=== PATIENT | male | born 1965 | race Caucasian/White ===

== ENCOUNTER 2018-09-23 03:23 | Emergency (ER) | END 2018-09-23 06:29 | disposition home or self-care (01) ==

== ENCOUNTER 2018-09-23 20:30 | Emergency (ER) | END 2018-09-23 23:25 | disposition home or self-care (01) ==

== ENCOUNTER 2019-04-10 19:39 | Emergency (ER) | payer MEDICAID ==
[~2019-04-10] VITALS: Ht 162.6 cm; Wt 73.0 kg
[~2019-04-10 19:39] MED LIST: FAMO-96 PO; IBUP-1542 PO; LORA-441 PO; ZOF8 PO
[2019-04-10 19:51] VITALS: BP 147/68; PULSE 85; RESP 18; Ht 162.6 cm; Wt 73.0 kg
--- NOTE | 2019-04-16 21:35 | ERD ---
ER Documentation Chief Complaint Chief Complaint seen 04/10/19 generalize body rash/itch x 8 days HPI 53-year-old male history for hypertension hyperlipidemia presents for rash x8 days. Rash is generalized. He states that he noticed a rash after taking medication. He takes losartan and statin for hyperlipidemia. He has been taking these medications for years. Denies any fevers or chills. Denies chest pain or shortness of breath. No abdominal pain, nausea, vomiting. No other modifying factors noted, no treatments tried at home. ROS All systems reviewed and are negative except as per history of present illness. Medications Home Meds Active Scripts Loratadine* (Claritin*) 10 Mg Capsule, 10 MG PO DAILY PRN for ITCHING, #30 CAP Prov:LUPILLO LAU DO 04/10/19 Diphenhydramine Hcl (Benadryl) 25 Mg Cap, 25 MG PO Q6H PRN for ITCHING, #30 CAP Prov:LUPILLO LAU DO 04/10/19 Famotidine* (Famotidine*) 40 Mg Tablet, 40 MG PO HS, #30 TAB Prov:RADHA WINKLER PA-C 04/24/16 Allergies Allergies: Coded Allergies: Penicillins (Verified Allergy, Unknown, 07/12/18) PMhx/Soc Hypertension, hyperlipidemia History of Surgery: No Anesthesia Reaction: No Hx Neurological Disorder: No Hx Respiratory Disorders: No Hx Cardiac Disorders: No Hx Psychiatric Problems: No Hx Miscellaneous Medical Probl: No Hx Alcohol Use: Yes (REGULARLY) Hx Substance Use: No (denies) Hx Tobacco Use: No FmHx Family History: No coronary disease Physical Exam Vitals Temperature 98.5, pulse 85, respiration 18, blood pressure 147/68, O2 saturation 98% on room air Physical Exam Const: No acute distress Head: Atraumatic Eyes: Normal Conjunctiva ENT: Normal External Ears, Nose and Mouth. Neck: Full range of motion. No meningismus. Resp: Clear to auscultation bilaterally Cardio: Regular rate and rhythm, no murmurs Abd: Soft, non tender, non distended. Normal bowel sounds Skin: Diffuse macular papular rash noted Back: No midline or flank tenderness Ext: No cyanosis, or edema Neur: Awake and alert Psych: Normal Mood and Affect Procedures/MDM Medical Decision Making: Differential diagnosis includes but not limited to allergic reaction, dermatitis, cellulitis, viral syndrome, fungal infection, erythrasma Patient appeared well on physical exam. No acute distress, speaking in full sentences, there is no tongue swelling Physical examination consistent with dermatitis Low suspicion for deep space infection, Babak Gibson symdrome, toxic epiderma necrolysis Prescription(s): Patient given prescription for supportive medication(s). Patient advised to follow up with PCP in 1-2 days. Patient advised to return to ED for new or worsening symptoms. Patient stable on discharge from the ED. Disclaimer: Inadvertent spelling and grammatical errors are likely due to EHR /dictation software use and do not reflect on the overall quality of patient care. Also, please note that the electronic time recorded on this note does not necessarily reflect the actual time of the patient encounter. Departure Diagnosis: Primary Impression: Rash Condition: Fair Patient Instructions: Self-Care for Skin Rashes Referrals: COUNTS INCLUDE 234 BEDS AT THE [facility] YOU HAVE RECEIVED A MEDICAL SCREENING EXAM AND THE RESULTS INDICATE THAT YOU DO NOT HAVE A CONDITION THAT REQUIRES URGENT TREATMENT IN THE EMERGENCY DEPARTMENT. FURTHER EVALUATION AND TREATMENT OF YOUR CONDITION CAN WAIT UNTIL YOU ARE SEEN IN YOUR DOCTORS OFFICE WITHIN THE NEXT 1-2 DAYS. IT IS YOUR RESPONSIBILITY TO MAKE AN APPOINTMENT FOR FOLOW-UP CARE. IF YOU HAVE A PRIMARY DOCTOR --you should call your primary doctor and schedule an appointment IF YOU DO NOT HAVE A PRIMARY DOCTOR YOU CAN CALL OUR PHYSICIAN REFERRAL HOTLINE AT IF YOU CAN NOT AFFORD TO SEE A PHYSICIAN YOU CAN CHOSE FROM THE FOLLOWING FORMERLY [facility] [address] [facility]. [facility] [address] [facility] [address] [facility] [address] [facility]. [facility] [address] [facility]. [facility]. [address] Additional Instructions: Llame al doctor MAANA y kerry vanessa CALI PARA DENTRO DE 1-2 ADEN.Dgale a la secretaria que nosotros le instruimos hacer esta cali.Avise o llame si guerrero condicin se empeora antes de la cali. Regresa aqui si peor o no mejor. LUPILLO LAU DO Apr 16, 2019 21:35
== END 2019-04-10 20:29 | disposition home or self-care (01) ==
LOC: MERGE 19:39 → E/R 19:39
DX: R21 Rash and other nonspecific skin eruption (principal); I10 Essential (primary) hypertension
CPT/HCPCS: 93005

== ENCOUNTER 2019-04-18 18:55 | Emergency (ER) | payer MEDICAID ==
[~2019-04-18] VITALS: Ht 160 cm; Wt 72.7 kg
[2019-04-18 19:01] VITALS: RESP 19; Ht 160 cm; Wt 72.7 kg
--- NOTE | 2019-04-18 19:12 | EN ---
Date/Time of Note Date/Time of Note DATE: 04/18/19 TIME: 19:11 ER Progress Note MSE-itchy rash despite Benadryl and Claritin. May benefit from steroids or treatment IM. ED 2 appropriate. Previous visit here last week per patient although possibly under different account number. BENNY MYERS MD Apr 18, 2019 19:12
[2019-04-18] MEDS ORDERED: PRED20TA PO (19:59)
[2019-04-18] MEDS ORDERED: DIPHENHYDRAMINE 50 MG INJ IM ONE (20:00)
[2019-04-18] MEDS ORDERED: DEXAMETHASONE 10 MG/ML 1 ML INJ IM ONE (20:00)
--- NOTE | 2019-04-18 20:03 | ERD ---
ER Documentation Chief Complaint Chief Complaint RASH ON LEGS; POSS ALLERGY; ON/OFF [id number] NOT WORKING HPI 53-year-old male presents with an itchy rash on his legs and face and flexor s urfaces of his elbows for the last 2 weeks. He has been taking gemfibrozil and MALA receptor kenny starting 1 month prior. He is currently stopped his medications. He has been prescribed Claritin and Benadryl for itching with some relief but not complete. Denies shortness of breath, fevers, vomiting, abdominal pain, known allergies or inciting events. ROS All systems reviewed and are negative except as per history of present illness. Medications Home Meds Active Scripts Prednisone* (Prednisone*) 20 Mg Tab, 40 MG PO DAILY for 4 Days, TAB Start April Prov:BENNY MYERS MD 04/18/19 Lorazepam* (Ativan*) 0.5 Mg Tablet, 0.5 MG PO Q8H PRN for hiccoughs, #10 TAB Prov:CHEYANNE YANG PA-C 09/23/18 Ondansetron Hcl* (Zofran*) 8 Mg Tab, 8 MG PO Q6H PRN for NAUSEA AND OR VOMITING, #20 TAB Prov:ELVA PATRICK MD 09/23/18 Famotidine* (Pepcid*) 20 Mg Tablet, 20 MG PO BID for 14 Days, TAB Prov:ELVA PATRICK MD 09/23/18 Ibuprofen* (Motrin*) 600 Mg Tab, 600 MG PO Q6H PRN for PAIN AND OR ELEVATED TEMP, #30 Prov:DAVE JUNIOR NP 09/05/15 Allergies Allergies: Coded Allergies: Penicillins (Verified Allergy, Intermediate, RASH, MALAISE, 09/05/15) PMhx/Soc Medical and Surgical Hx: pt denies Surgical Hx History of Surgery: No Hx Neurological Disorder: No Hx Respiratory Disorders: No Hx Cardiac Disorders: Yes (HTN, HLD) Hx Psychiatric Problems: No Hx Miscellaneous Medical Probl: No Hx Alcohol Use: Yes (heavy) Hx Substance Use: No Hx Tobacco Use: Yes (3 CIGARS DAILY ) Smoking Status: Current every day smoker FmHx Family History: No diabetes, No coronary disease, No other Physical Exam Vitals Vital Signs Date Temp Pulse Resp B/P (MAP) Pulse Ox O2 O2 Flow FiO2 Time Delivery Rate 04/18/19 98.7 84 19 155/77 97 19:01 (103) Physical Exam Const: No acute distress Head: Atraumatic Eyes: Normal Conjunctiva ENT: Normal External Ears, Nose and Mouth. Irritation of the eyelids and cheeks and lips without induration, streaking, vesicles. Airway patent and tongue normal size. Neck: Full range of motion. No meningismus. Resp: Clear to auscultation bilaterally Cardio: Regular rate and rhythm, no murmurs Abd: Soft, non tender, non distended. Normal bowel sounds Skin: No petechiae or purpura. Scattered blanching erythematous macular papular rash primarily on the thighs and inner legs. No induration, streaking, vesicles. Back: No midline or flank tenderness Ext: No cyanosis, or edema Neur: Awake and alert Psych: Normal Mood and Affect Results 24 hrs Current Medications Medications Dose Sig/Ana Maria Start Time Status Last (Trade) Ordered Route PRN Stop Time Admin Dose Reason Admin 10 mg ONCE ONCE 04/18/19 Dexamethasone IM 20:00 (Decadron) 04/18/19 20:01 50 mg ONCE ONCE 04/18/19 Diphenhydrami IM 20:00 ne HCl 04/18/19 20:01 (Benadryl) Procedures/MDM Patient presents with an itchy rash on the face, extremities for last 2 weeks. Clinically it may have the appearance of a drug reaction or nonspecific eczema type rash. There is no signs of anaphylaxis, purpura, life-threatening rashes, cellulitis. He was given Decadron 10 mg IM as well as Benadryl 50 mg and will be treated with continuation of a short course of prednisone, Benadryl, primary care follow-up and return precautions. The patient was stable with no new complaints during the ER course. Clinically, there is no current evidence to suggest meningitis, sepsis, acute abdomen, pneumonia, stroke, acute coronary syndrome, pulmonary embolism, aortic dissection or any other emergent condition appearing to require further evaluation or hospitalization. Patient counseled regarding my diagnostic impression and care plan. Prior to discharge all questions answered. Pt agrees with treatment plan and understands strict return precautions. Pt is instructed to follow up with primary care provider within 24- 48 hours. Precautionary instructions provided including instructions to return to the ER if not improving or for any worsening or changing symptoms or concerns. Disclaimer: Inadvertent spelling and grammatical errors are likely due to EHR/dictation software use and do not reflect on the overall quality of patient care. Also, please note that the electronic time recorded on this note does not necessarily reflect the actual time of the patient encounter. Departure Diagnosis: Primary Impression: Rash Additional Impression: Allergic reaction Encounter type: initial encounter Qualified Codes: T78.40XA - Allergy, unspecified, initial encounter Condition: Stable Patient Instructions: Allergic Reaction, Drug, Dermatitis, Non-Specific, Hypertension, To Be Confirmed [facility]errals: [facility] Usted se julien hecho un examen mdico de control que le indica que no est en vanessa condicin que requiera tratamiento urgente en el Departamento de Emergencia. Un estudio ms profundo y el tratamiento de guerrero condicin pueden esperar sin ningn riesgo hasta que usted sea atendida/o en el consultorio de guerrero mdico o vanessa clnica. Es responsabilidad suya arreglar vanessa adelita para el seguimiento del elham. MANEJO DE CONDICIONES NO URGENTES EN EL FUTURO 1) Si usted tiene un mdico de atencin primaria: Usted debera llamar a guerrero mdico de atencin primaria antes de venir al departamento de emergencia. Despus de las horas de consultorio, guerrero doctor o guerrero asociado/a est disponible por telfono. El mdico o enfermero de marybel en el servicio telefnico puede asesorarle por rito medio para atender el problema, o elham contrario se puede programar vanessa adelita. 2) Si usted no tiene un mdico de atencin primaria: Llame al mdico o clnica de referencia que aparece abajo jerad las horas de consultorio para hacer vanessa adelita para que le vean. CLINICAS: [facility] [phone] [address] [facility] 889 [phone] [address] [facility] [phone] [facility] [phone] [facility] [phone] [address] [facility]. [phone] [address] Additional Instructions: no vj la medicina para cholesterol hasta roncha esta mejor. Cheque otro vez con guerrero doctor primario en el proximo parham or regresa para mas o nueva simptomas. BENNY MYERS MD Apr 18, 2019 20:03
[2019-04-18 20:35] VITALS: BP 170/90; PULSE 70
== END 2019-04-18 20:36 | disposition home or self-care (01) ==
LOC: FTE 18:55
DX: T78.3XXA Angioneurotic edema, initial encounter (principal); I10 Essential (primary) hypertension; F17.210 Nicotine dependence, cigarettes, uncomplicated
CPT/HCPCS: J1100; J1200; 96372

== ENCOUNTER 2019-04-26 19:03 | Emergency (ER) | payer MEDICAID ==
[~2019-04-26] VITALS: Ht 160 cm; Wt 71.5 kg
[~2019-04-26 19:03] MED LIST changes: +PRED20TA PO
[2019-04-26 19:05] VITALS: BP 151/89; PULSE 107; RESP 18; Ht 160 cm; Wt 71.5 kg
--- NOTE | 2019-04-26 19:45 | ERD ---
ER Documentation Chief Complaint Chief Complaint RASH WITH ITCHING ON/OFF; SEEN HERE BEFORE SAME ISSUE 8DAYS AGO HPI 53-year-old male, with history of the skin allergies, return to the emergency department, complaining of 1 day with worsening of pruritic rash and lower extremities. Otherwise, no fever, no chills, no abdominal pain. The patient denies distal weakness, numbness or tingling. ROS All systems reviewed and are negative except as per history of present illness. Medications Home Meds Active Scripts Triamcinolone Acetonide (Triamcinolone Acetonide) 0.1% - 60 Ml Lotion, 1 APPLIC TOP BID for 7 Days, #1 BOTTLE Prov:GAIL LYNNE MD 04/26/19 Prednisone* (Prednisone*) 20 Mg Tab, 60 MG PO DAILY for 5 Days, TAB Prov:GAIL LYNNE MD 04/26/19 Ranitidine Hcl* (Zantac*) 150 Mg Tablet, 300 MG PO QHS PRN for EPIGASTRIC PAIN, #20 TAB Prov:GAIL LYNNE MD 04/26/19 Prednisone* (Prednisone*) 20 Mg Tab, 40 MG PO DAILY for 4 Days, TAB Start April Prov:BENNY MYERS MD 04/18/19 Lorazepam* (Ativan*) 0.5 Mg Tablet, 0.5 MG PO Q8H PRN for hiccoughs, #10 TAB Prov:CHEYANNE YANG PA-C 09/23/18 Ondansetron Hcl* (Zofran*) 8 Mg Tab, 8 MG PO Q6H PRN for NAUSEA AND OR VOMITING, #20 TAB Prov:ELVA PATRICK MD 09/23/18 Famotidine* (Pepcid*) 20 Mg Tablet, 20 MG PO BID for 14 Days, TAB Prov:ELVA PATRICK MD 09/23/18 Ibuprofen* (Motrin*) 600 Mg Tab, 600 MG PO Q6H PRN for PAIN AND OR ELEVATED TEMP, #30 Prov:DAVE JUNIOR NP 09/05/15 Allergies Allergies: Coded Allergies: Penicillins (Verified Allergy, Intermediate, RASH, MALAISE, 09/05/15) PMhx/Soc History of Surgery: No Anesthesia Reaction: No Hx Neurological Disorder: No Hx Respiratory Disorders: No Hx Cardiac Disorders: Yes (HTN, HLD) Hx Psychiatric Problems: No Hx Miscellaneous Medical Probl: No Hx Alcohol Use: Yes (heavy) Hx Substance Use: No Hx Tobacco Use: Yes (3 CIGARS DAILY ) FmHx Family History: No diabetes, No coronary disease Physical Exam Vitals Vital Signs Date Temp Pulse Resp B/P (MAP) Pulse Ox O2 O2 Flow FiO2 Time Delivery Rate 04/26/19 99.0 107 18 151/89 96 19:05 (109) Physical Exam Const: No acute distress Head: Atraumatic Eyes: Normal Conjunctiva ENT: Normal External Ears, Nose and Mouth. Neck: Full range of motion. No meningismus. Resp: Clear to auscultation bilaterally Cardio: Regular rate and rhythm, no murmurs Abd: Soft, non tender, non distended. Normal bowel sounds Skin: Erythematous, micropapular, homogeneous rash in the anterior aspect of bilateral thighs. Back: No midline or flank tenderness Ext: No cyanosis, or edema Neur: Awake and alert Psych: Normal Mood and Affect Procedures/MDM Vital signs stable, Differential diagnosis include but not limited to: Heat rash, contact dermatitis, viral exanthema, seborrheic dermatitis, scabies, acute allergic reaction, medication side effect. low suspicion for systemic infectious process, angioedema, anaphylactic shock. Physical examination and clinical presentation consistent most likely with dermatitis. Results and clinical impression discussed with the patient who agree with management. The patient is stable to be treated outpatient and will be discharged home with a Rx for topical mild potency steroids, some side effects of prescribed medications (skin atrophy, nausea, vomiting, diarrhea, interactions with other medications) were reviewed. The patient needs a follow up with the primary care provider in the next 48h. If symptoms persist, worsen or new symptoms develop, then patient should return to the ED immediately. Instructions explained and given directly by me with acknowledgment and demonstrated understanding. Disclaimer: Inadvertent spelling and grammatical errors are likely due to EHR/dictation software use and do not reflect on the overall quality of patient care. Also, please note that the electronic time recorded on this note does not necessarily reflect the actual time of the patient encounter. Departure Diagnosis: Primary Impression: Allergic dermatitis Condition: Stable Additional Instructions: Muchas curtis por [facility] para guerrero servicio. Esperamos que en guerrero visita a la johnathon de emergencia guerrero problema medico haya sido solucionado y que se sienta mucho mejor. Para estar seguros que guerrero mejoria sigue en proceso, le pedimos el favor de hacer vanessa adelita de seguimiento medico con guerrero doctor primario en los proximos 2-4 parham. Lleve con usted estos documentos y las medicinas recetadas. Si winter sintomas empeoran, NO SE ESPERE, por favor regrese a johnathon de emergencia INMEDIATAMENTE. En elham que usted no tenga un mdico de atencin primaria: Llame al mdico o clnica comunitaria de referencia que aparece abajo jerad las horas de consultorio para hacer vanessa adelita para que le vean. CLINICAS: [facility] [phone] [address] [facility] [phone] [facility] [phone] [facility] [phone] [address] [facility] [phone] [address] [facility]. [phone] GAIL PEREZ MD Apr 26, 2019 19:45
[2019-04-26] MEDS ORDERED: RANI150T35 PO (19:48)
[2019-04-26] MEDS ORDERED: TR1B60 TOP (19:48)
[2019-04-26] MEDS ORDERED: PRED20TA PO (19:48)
== END 2019-04-26 19:49 | disposition home or self-care (01) ==
LOC: FTE 19:03 → E/R 19:49
DX: L23.9 Allergic contact dermatitis, unspecified cause (principal); I10 Essential (primary) hypertension
CPT/HCPCS: 99282

== ENCOUNTER 2019-05-10 18:39 | Emergency (ER) | payer MEDICAID ==
[~2019-05-10] VITALS: Ht 160 cm; Wt 71.2 kg
[~2019-05-10 18:39] MED LIST changes: +BEN50 PO; +ELIM TOP; +RANI150T35 PO; +TR1B60 TOP
[2019-05-10 18:46] VITALS: BP 166/83; PULSE 90; RESP 16; Ht 160 cm; Wt 71.2 kg
[2019-05-10] MEDS ORDERED: DIPHENHYDRAMINE 50 MG INJ IM ONE (20:00)
[2019-05-10] MEDS ORDERED: predniSONE 20 MG TAB PO ONE (20:00)
[2019-05-10] MEDS ORDERED: FAMOTIDINE 20 MG TAB PO ONE (20:00)
--- NOTE | 2019-05-14 18:33 | ERD ---
ER Documentation Chief Complaint Chief Complaint Pt reports an allergic reaction on his body HPI MDM: 53-year-old Male presents with complaint of rash and itching to his body for the last week. Patient states he had a similar incident couple months ago and it resolved but now has come back. Patient denies any wheezing, dyspnea, shortness of breath, chest pain, abdominal pain, stridor, respiratory distress, cough, fevers, chills. ROS All systems reviewed and are negative except as per history of present illness. Medications Home Meds Active Scripts Prednisone* (Prednisone*) 20 Mg Tab, 60 MG PO DAILY for 4 Days, TAB Prov:CHEYANNE OLVERA 05/10/19 Diphenhydramine Hcl* (Benadryl*) 50 Mg Cap, 50 MG PO Q6H PRN for ITCHING/RASH, #30 CAP Prov:CHEYANNE OLVERA 05/10/19 Permethrin* (Elimite*) 5% Cr, 1 APPLIC TOP ONCE, #1 TUB Prov:CHEYANNE OLVERA 05/10/19 Triamcinolone Acetonide (Triamcinolone Acetonide) 0.1% - 60 Ml Lotion, 1 APPLIC TOP BID for 7 Days, #1 BOTTLE Prov:GAIL LYNNE MD 04/26/19 Prednisone* (Prednisone*) 20 Mg Tab, 60 MG PO DAILY for 5 Days, TAB Prov:GAIL LYNNE MD 04/26/19 Ranitidine Hcl* (Zantac*) 150 Mg Tablet, 300 MG PO QHS PRN for EPIGASTRIC PAIN, #20 TAB Prov:GAIL LYNNE MD 04/26/19 Prednisone* (Prednisone*) 20 Mg Tab, 40 MG PO DAILY for 4 Days, TAB Start April Prov:BENNY MYERS MD 04/18/19 Lorazepam* (Ativan*) 0.5 Mg Tablet, 0.5 MG PO Q8H PRN for hiccoughs, #10 TAB Prov:CHEYANNE YANG PA-C 09/23/18 Ondansetron Hcl* (Zofran*) 8 Mg Tab, 8 MG PO Q6H PRN for NAUSEA AND OR VOMITING, #20 TAB Prov:ELVA PATRICK MD 09/23/18 Famotidine* (Pepcid*) 20 Mg Tablet, 20 MG PO BID for 14 Days, TAB Prov:ELVA PATRICK MD 09/23/18 Ibuprofen* (Motrin*) 600 Mg Tab, 600 MG PO Q6H PRN for PAIN AND OR ELEVATED TEMP, #30 Prov:DAVE JUNIOR NP 09/05/15 Allergies Allergies: Coded Allergies: Penicillins (Verified Allergy, Intermediate, RASH, MALAISE, 09/05/15) PMhx/Soc Medical and Surgical Hx: pt denies Surgical Hx History of Surgery: No Anesthesia Reaction: No Hx Neurological Disorder: No Hx Respiratory Disorders: No Hx Cardiac Disorders: Yes (HTN, HLD) Hx Psychiatric Problems: No Hx Miscellaneous Medical Probl: No Hx Alcohol Use: Yes (heavy) Hx Substance Use: No Hx Tobacco Use: Yes (3 CIGARS DAILY ) Smoking Status: Current every day smoker FmHx Family History: No diabetes, No coronary disease, No other Physical Exam Vitals Vital Signs Date Temp Pulse Resp B/P (MAP) Pulse Ox O2 O2 Flow FiO2 Time Delivery Rate 05/10/19 98.4 90 16 166/83 97 18:46 (110) Physical Exam Const: No acute distress Eyes: Normal Conjunctiva ENT: Normal External Ears, Nose and Mouth. Airway patent with no swelling or edema in the tongue or throat. Resp: Clear to auscultation bilaterally Cardio: Regular rate and rhythm, no murmurs Skin: Urticarious rash noted to abdomen and arms up diffusely. No fluctuance or induration. No discharge or signs of infection. Neur: Awake and alert Psych: Normal Mood and Affect no Results 24 hrs Current Medications Medications Dose Sig/Ana Maria Start Time Status Last (Trade) Ordered Route PRN Stop Time Admin Dose Reason Admin Prednisone 60 mg ONCE ONCE 05/10/19 DC 05/10/19 (Prednisone) PO 20:00 05/10/19 20:10 20:02 50 mg ONCE ONCE 05/10/19 DC 05/10/19 Diphenhydrami IM 20:00 05/10/19 20:11 ne HCl 20:02 (Benadryl) Famotidine 40 mg ONCE ONCE 05/10/19 DC 05/10/19 (Pepcid) PO 20:00 05/10/19 20:11 20:02 Procedures/MDM MDM:MDM: Patient's presentation is consistent with scabies versus allergic reaction. Patient was treated for both. I have low suspicion for Kawasaki disease, scarlet fever, necrotizing fasciitis, sepsis, gangrene, Babak-Gibson syndrome, toxic epidural necrolysis, abscess, cellulitis, anaphylaxis. Patient treated with prednisone, pepcid, and benadryl. Patient discharged with 4 day course of prednisone and benadryl as well as permethrin. At no time during the ER course did patient exhibit signs of anaphylaxis, respiratory distress, or angioedema. Patient's vitals were WNL throughout the ER course at time of discharge. at this time, patient is stable for discharge and outpatient management. I have instructed the patient to follow-up with his/her primary care physician in 1 day. I have discussed with the patient the possibility of needing to see a specialist for further workup and imaging studies if symptoms persist. I have instructed the patient to promptly return to the ER for any new or worsening symptoms including but not limited to increased pain, fever, nausea, vomiting, weakness or LOC. The patient and/or family expressed understanding of and agreement with this plan. All questions were answered. Home care instructions were provided. Communication with patient throughout the ER course was performed using a transl ator . Patient gave verbal confirmation to the practitioner, through the pulmonary function technician, that they understood everything that was being said to them. DISCLAIMER: Inadvertent spelling and grammatical errors are likely due to EHR/dictation software use and do not reflect on the overall quality of patient care. Also, please note that the electronic time recorded on this note does not necessarily reflect the actual time of the patient encounter. Departure Diagnosis: Primary Impression: Scabies Additional Impression: Allergic reaction Condition: Stable Patient Instructions: Scabies, Permethrin Topical cream Additional Instructions: FOLLOW UP WITH YOUR PRIMARY CARE PHYSICIAN TOMORROW.Return to this facility if you are not improving as expected. CHEYANNE OLVERA May 14, 2019 18:33
== END 2019-05-10 20:30 | disposition home or self-care (01) ==
LOC: FTE 18:39
DX: B86 Scabies (principal); I10 Essential (primary) hypertension; F17.210 Nicotine dependence, cigarettes, uncomplicated; L50.0 Allergic urticaria
CPT/HCPCS: 96372; J1200; J7512; Z7502; Z7610